=== PATIENT | female | born 1975 | race Caucasian/White ===

== ENCOUNTER 2018-04-28 22:45 | Inpatient (IN) | payer MEDICAID ==
[2018-04-28] MEDS ORDERED: Morphine Sulfate 2 mg/mL 1mL Syr ONE (23:39)
[2018-04-28] MEDS ORDERED: Morphine Sulfate 2 mg/mL 1mL Syr IVP STA (23:40)
[2018-04-28 23:42] LABS: % BASOPHILS 0.3 % (0.0-2.0); % EOSINOPHILS 1.6 % (0.0-5.0); % LYMPHOCYTES 24.7 % (20.0-50.0); % NEUTROPHILS 65.4 % (40.0-80.0); EOSINOPHILE ABSOLUTE 0.1 Th/cmm (0.1-0.4); HEMATOCRIT 34.7 % (41.0-60); HEMOGLOBIN 11.5 gm/dL (12-16); LYMPHOCYTE ABSOLUTE 2.1 Th/cmm (1.5-3.0); MEAN CELL VOLUME 81.4 fl (81-100); MEAN CORPUSCULAR HEMOGLOBIN 26.9 pg (27.0-31.0); MEAN CORPUSCULAR HGB CONC 33.1 pg (28.0-36.0); MEAN PLATELET VOLUME 8.1 fl; MONOCYTE ABSOLUTE 0.7 Th/cmm (0.3-1.0); NEUTROPHILE ABSOLUTE 5.7 Th/cmm (1.8-8.0); PLATELET COUNT 331 Th/cmm (150-400); RED BLOOD COUNT 4.27 Mil/cmm (3.80-5.10); RED CELL DISTRIBUTION WIDTH 16.6 % (11.5-20.0); WHITE BLOOD COUNT 8.6 Th/cmm (4.8-10.8)
[2018-04-28 23:47] LABS: URINE SOURCE RANDOM
[2018-04-28 23:49] LABS: URINE BILIRUBIN NEGATIVE (NEGATIVE); URINE BLOOD NEGATIVE (NEGATIVE); URINE GLUCOSE (UA) NEGATIVE (NEGATIVE); URINE KETONE NEGATIVE (NEGATIVE); URINE LEUKOCYTE ESTERASE NEGATIVE (NEGATIVE); URINE NITRATE NEGATIVE (NEGATIVE); URINE PH 6.5 (4.6 - 8.0); URINE PROTEIN NEGATIVE (NEGATIVE); URINE UROBILINOGEN 0.2 E.U./dL (0.2 - 1.0)
[2018-04-28 23:50] LABS: URINE CLARITY CLEAR (CLEAR); URINE COLOR YELLOW; URINE MICROSCOPIC INDICATED? NO
--- NOTE | 2018-04-28 23:51 | ED Physician Chart ---
ED Chief Complaint/HPI - Patient Information Date Seen:: 04/28/18 Time Seen:: 23:50 Chief Complaint:: Back pain and abdominal pain History of Present Illness:: 42 yo female with morbid obesity, was brought from [facility] to ER for evaluation of low back pain and LLQ abdominal pain for one day. Patient stated that the back pain was shooting pain 10/10 without radiating to legs. LLQ abdominal pain was dull pain 10/10. The back pain was not relieved by percocet 10/325mg. Patient had diarrhea for 3 days. Denied fever or bloody diarrhea. Allergies:: Allergies Allergy/AdvReac Type Severity Reaction Status Date / Time methylparaben Allergy Verified 04/28/18 22:58 oxymorphone Allergy Verified 04/28/18 22:58 tramadol Allergy Verified 04/28/18 22:58 Vitals:: Vital Signs - 8 hr 04/28/18 22:50 Temp 98.0 F HR 72 RR 18 BP 111/64 O2 Sat % 96 ED Review of Systems - Review of Systems General/Constitutional: No fever, No chills Skin: No rash Head: No headache Eyes: No pain ENT: No earache Neck: No neck pain Cardio Vascular: No chest pain Pulmonary: No SOB GI: Nausea, No vomiting, Diarrhea, Pain Musculoskeletal: Back pain Psychiatric: Prior psych history, Depression, Anxiety Neurological: No focal symptoms ED Past Medical History - Past Medical History Past Medical History: DM (diabetic neuropathy) Social History: Non Smoker, No Alcohol, No Drug Use Surgical History: Cholecystectomy, Hernia (x 3) Psychiatricy History: Depression, Bipolar, Other (Anxiety) Family Medical History - Family Member Mother History Unknown: Yes ED Physical Exam - Physical Examination General/Constitutional: Awake, Alert Head: Atraumatic Eyes: PERRL Skin: No skin lesions ENMT: Nasal exam nl Neck: No nuchal rigidity Respiratory: No Wheeze/Rhonchi/Rales Cardio Vascular: RRR, No murmur, gallop, rubs, NL S1 S2 Other GI comments:: LLQ tenderness Other Extremities comments:: Lumbar spine tenderness with painful and limited ROM Neuro/Psych: No focal deficits ED Labs/Radiology/EKG Results - Lab Results Results: Laboratory Tests 04/28/18 04/28/18 23:30 23:35 WBC 8.6 RBC 4.27 Hgb 11.5 L Hct 34.7 L MCV 81.4 MCH 26.9 L MCHC Differential 33.1 RDW 16.6 Plt Count 331 MPV 8.1 Neutrophils % 65.4 Lymphocytes % 24.7 Monocytes % 8.0 Eosinophils % 1.6 Basophils % 0.3 Urine Source RANDOM Urine Color YELLOW Urine Clarity CLEAR Urine pH 6.5 Ur Specific [place] 1.015 Urine Protein NEGATIVE Urine Glucose (UA) NEGATIVE Urine Ketones NEGATIVE Urine Blood NEGATIVE Urine Nitrate NEGATIVE Urine Bilirubin NEGATIVE Urine Urobilinogen 0.2 Ur Leukocyte Esterase NEGATIVE Laboratory Last Values WBC 8.8 Th/cmm (4.8-10.8) 04/29/18 06:04 RBC 4.28 Mil/cmm (3.80-5.10) 04/29/18 06:04 Hgb 11.6 gm/dL (12-16) L 04/29/18 06:04 Hct 34.8 % (41.0-60) L 04/29/18 06:04 MCV 81.3 fl (81-100) 04/29/18 06:04 MCH 27.0 pg (27.0-31.0) 04/29/18 06:04 MCHC Differential 33.2 pg (28.0-36.0) 04/29/18 06:04 RDW 16.9 % (11.5-20.0) 04/29/18 06:04 Plt Count 338 Th/cmm (150-400) 04/29/18 06:04 MPV 8.0 fl 04/29/18 06:04 Neutrophils % 63.8 % (40.0-80.0) 04/29/18 06:04 Lymphocytes % 25.3 % (20.0-50.0) 04/29/18 06:04 Monocytes % 9.1 % (2.0-10.0) 04/29/18 06:04 Eosinophils % 1.5 % (0.0-5.0) 04/29/18 06:04 Basophils % 0.3 % (0.0-2.0) 04/29/18 06:04 Sodium 139 mEq/L (136-145) 04/29/18 06:04 Potassium 4.4 mEq/L (3.5-5.1) 04/29/18 06:04 Chloride 102 mEq/L (98-107) 04/29/18 06:04 Carbon Dioxide 30.3 mEq/L (21.0-31.0) 04/29/18 06:04 Anion Gap 11.1 (7.0-16.0) 04/29/18 06:04 BUN 11 mg/dL (7-25) 04/29/18 06:04 Creatinine 0.6 mg/dL (0.6-1.2) 04/29/18 06:04 Est GFR ( Amer) > 60.0 ml/min (>90) 04/29/18 06:04 Est GFR (Non-Af Amer) > 60.0 ml/min 04/29/18 06:04 BUN/Creatinine Ratio 18.3 04/29/18 06:04 Glucose 164 mg/dL (70-105) H 04/29/18 06:04 Calcium 8.9 mg/dL (8.6-10.3) 04/29/18 06:04 Total Bilirubin 0.2 mg/dL (0.3-1.0) L 04/28/18 23:30 AST 25 U/L (13-39) 04/28/18 23:30 ALT 26 U/L (7-52) 04/28/18 23:30 Alkaline Phosphatase 110 U/L (34-104) H 04/28/18 23:30 Total Protein 6.2 gm/dL (6.0-8.3) 04/28/18 23:30 Albumin 3.3 gm/dL (3.7-5.3) L 04/28/18 23:30 Globulin 2.9 gm/dL 04/28/18 23:30 Albumin/Globulin Ratio 1.1 (1.0-1.8) 04/28/18 23:30 Triglycerides 91 mg/dL (<150) 04/29/18 06:04 Cholesterol 106 mg/dL (<200) 04/29/18 06:04 LDL Cholesterol Direct 52 mg/dL (75-193) L 04/29/18 06:04 HDL Cholesterol 46 mg/dL (23-92) 04/29/18 06:04 Amylase 28 U/L (29-103) L 04/29/18 00:00 Lipase 11 U/L (11-82) 04/29/18 00:00 Urine Source RANDOM 04/28/18 23:35 Urine Color YELLOW 04/28/18 23:35 Urine Clarity CLEAR (CLEAR) 04/28/18 23:35 Urine pH 6.5 (4.6 - 8.0) 04/28/18 23:35 Ur Specific [place] 1.015 (1.005-1.030) 04/28/18 23:35 Urine Protein NEGATIVE mg/dL (NEGATIVE) 04/28/18 23:35 Urine Glucose (UA) NEGATIVE mg/dL (NEGATIVE) 04/28/18 23:35 Urine Ketones NEGATIVE mg/dL (NEGATIVE) 04/28/18 23:35 Urine Blood NEGATIVE (NEGATIVE) 04/28/18 23:35 Urine Nitrate NEGATIVE (NEGATIVE) 04/28/18 23:35 Urine Bilirubin NEGATIVE (NEGATIVE) 04/28/18 23:35 Urine Urobilinogen 0.2 E.U./dL (0.2 - 1.0) 04/28/18 23:35 Ur Leukocyte Esterase NEGATIVE (NEGATIVE) 04/28/18 23:35 - Radiology Results Results: CT abdomen/pelvis without contrast: surgical changes noted along the anterior abdominal wall. Small and large bowel noted in close proximity to the anterior abdominal wall. A degree of bowel herniation cannot be definitely excluded. A CT scan following oral/bowel contrast would provide additional detail and assessment. Lumbar spine X ray: diffuse degenerative changes ED Assessment - Assessment General Assessment: Abdominal pain Bowel herniation cannot be definitely excluded Low back pain Normocytic anemia Assessment/Comments:: CBC, CMP, amylase, lipase, UA CT abdomen/pelvis without contrast Morphin 2mg IV x 1 Admit to med surg for further evaluation and management ED Septic Shock - . Is Septic Shock (SBP<90, OR Lactate>4 mmol\L) present?: No - <6hrs of presentation: Vital Signs: Vital Signs - 8 hr 04/28/18 22:50 Temp 98.0 F HR 72 RR 18 BP 111/64 O2 Sat % 96 ED Reassessment (Disposition) - Reassessment Reassessment Condition:: Improved - Patient Disposition Discharge/Transfer:: Acute Care w/in this hosp Admitting Medical Physician:: Annelise Barrett
[2018-04-29] LABS: ALB/GLOB RATIO 1.1 (1.0-1.8); ALBUMIN 3.3 gm/dL (3.7-5.3); ALKALINE PHOSPHATASE 110 U/L (34-104); ANION GAP 13.7 (7.0-16.0); BILIRUBIN,TOTAL 0.2 mg/dL (0.3-1.0); BUN - UREA NITROGEN 11 mg/dL (7-25); CALCIUM SERUM 8.9 mg/dL (8.6-10.3); CARBON DIOXIDE 25.7 mEq/L (21.0-31.0); CHLORIDE 101 mEq/L (98-107); CREATININE - SERUM 0.6 mg/dL (0.6-1.2); GFR AFRICAN-AMERICAN > 60.0 ml/min (>90); GFR NON AFRICAN-AMERICAN > 60.0 ml/min; GLUCOSE 197 mg/dL (70-105); POTASSIUM SERUM 4.4 mEq/L (3.5-5.1); SGOT 25 U/L (13-39); SGPT/ALT 26 U/L (7-52); SODIUM SERUM 136 mEq/L (136-145); TOTAL PROTEIN,SERUM 6.2 gm/dL (6.0-8.3)
[2018-04-29 00:36] LABS: AMYLASE SERUM 28 U/L (29-103); LIPASE 11 U/L (11-82)
[2018-04-29 02:21] VITALS: BP 142/75
[2018-04-29] MEDS: Morphine Sulfate 2 mg/mL 1mL Syr IVP PRN ×10 (03:08→21:48)
[2018-04-29 06:36] LABS: % BASOPHILS 0.3 % (0.0-2.0); % EOSINOPHILS 1.5 % (0.0-5.0); % LYMPHOCYTES 25.3 % (20.0-50.0); % MONOCYTES 9.1 % (2.0-10.0); % NEUTROPHILS 63.8 % (40.0-80.0); EOSINOPHILE ABSOLUTE 0.1 Th/cmm (0.1-0.4); HEMATOCRIT 34.8 % (41.0-60); HEMOGLOBIN 11.6 gm/dL (12-16); LYMPHOCYTE ABSOLUTE 2.2 Th/cmm (1.5-3.0); MEAN CELL VOLUME 81.3 fl (81-100); MEAN CORPUSCULAR HGB CONC 33.2 pg (28.0-36.0); MONOCYTE ABSOLUTE 0.8 Th/cmm (0.3-1.0); NEUTROPHILE ABSOLUTE 5.7 Th/cmm (1.8-8.0); PLATELET COUNT 338 Th/cmm (150-400); RED BLOOD COUNT 4.28 Mil/cmm (3.80-5.10); RED CELL DISTRIBUTION WIDTH 16.9 % (11.5-20.0); WHITE BLOOD COUNT 8.8 Th/cmm (4.8-10.8)
[2018-04-29 06:43] LABS: ANION GAP 11.1 (7.0-16.0); BUN - UREA NITROGEN 11 mg/dL (7-25); CALCIUM SERUM 8.9 mg/dL (8.6-10.3); CARBON DIOXIDE 30.3 mEq/L (21.0-31.0); CHLORIDE 102 mEq/L (98-107); CHOLESTEROL 106 mg/dL (<200); CREATININE - SERUM 0.6 mg/dL (0.6-1.2); GFR AFRICAN-AMERICAN > 60.0 ml/min (>90); GFR NON AFRICAN-AMERICAN > 60.0 ml/min; GLUCOSE 164 mg/dL (70-105); HDL -HIGH DENSITY LIPOPROTEIN 46 mg/dL (23-92); POTASSIUM SERUM 4.4 mEq/L (3.5-5.1); SODIUM SERUM 139 mEq/L (136-145); TRIGLYCERIDES 91 mg/dL (<150)
--- NOTE | 2018-04-29 07:57 | Diagnostic Imaging Report ---
CT scan abdomen and pelvis without intravenous contrast HISTORY: Pain Total DLP equals 826 CTDI equals 18.9 Axial sections were obtained from the xiphoid process down to the pubic symphysis. There is enlargement of the left lobe of the liver. There appears to be a decrease in overall hepatic parenchymal density. The findings may be associated with fatty infiltration and should be correlated with liver function tests. No discrete focal lesions are seen. Surgical clips are seen within the corin hepatis region consistent with a prior cholecystectomy. No abnormalities seen in the region of the pancreas. The spleen appears normal. There is an approximate 1.5 cm hypodense lesion involving the right adrenal gland. Density measurements are consistent with fatty composition and a benign etiology. No focal renal lesions. No hydronephrosis. Surgical changes noted along the anterior abdominal wall. Small and large bowel noted in close proximity to the anterior abdominal wall. A degree of bowel herniation cannot be definitely excluded. An exam following administration of oral/bowel contrast would provide additional detail. Additional surgical changes noted in the right lower abdomen. No abnormal masses or fluid collections seen within the pelvis. Degenerative changes noted through the spine. IMPRESSION: 1. Surgical changes along the anterior abdominal wall associated with nondilated bowel. Herniation cannot be excluded. A CT scan following administration of oral/bowel contrast would provide additional detail and assessment. 2. 1.5 cm benign-appearing right adrenal lesion 3. Status post cholecystectomy 4. Enlargement of the left lobe of the liver lung parenchymal changes suggesting fatty infiltration. The finding should be correlated with liver function tests.
--- NOTE | 2018-04-29 08:31 | Diagnostic Imaging Report ---
Lumbar spine (3 views) HISTORY: Pain Degenerative changes with spur formation noted about the endplates of all vertebrae. Narrowing of the L2-3 and L3-4 disc spaces. Slight retrolisthesis of L3 relative to L4. Air is seen within the L3-4 interspace reflecting degenerative disc disease. Hypertrophic changes noted about the facet joints at L4-5 and L5-S1. Additional degenerative changes noted in the lower thoracic spine. IMPRESSION: 1. Diffuse degenerative changes
[2018-04-29] MEDS ORDERED: Magnesium Hydroxide (MOM) 30 mL UDC PO PRN (13:46)
[2018-04-29] MEDS ORDERED: APAP/Oxycodone 5/325mg Tab PO PRN (13:46)
[2018-04-29] MEDS ORDERED: INSULIN LISPRO 25 UNIT SUBQ SCH (14:00)
[2018-04-29] MEDS: INSULIN ASPART SLIDING SCALE 100 UNITS/ML UNIT SUBQ SCH ×2 (15:57→21:25)
--- NOTE | 2018-04-29 16:12 | History & Physical ---
ADMIT DATE: 04/29/2018 DICTATING FOR: Dr. Barrett. CHIEF COMPLAINT: Lower back pain and abdominal pain. HISTORY OF PRESENT ILLNESS: This is a 42-year-old obese female who is a resident of [facility], admitted here to the med/surg unit due to complaints of low back pain and left lower quadrant abdominal pain. The patient denied any nausea, vomiting or any diarrhea at the custodial. For further management, the patient is admitted to the med/surg unit. The patient did mention that she has been having diarrhea for about 3 days as well. PAST MEDICAL HISTORY: Diabetes, diabetic neuropathy and chronic back pain. SOCIAL HISTORY: The patient is a custodial resident requiring 24-hour nursing care. PAST SURGICAL HISTORY: Hernia repair and cholecystectomy. PSYCHIATRIC HISTORY: Bipolar, anxiety, depression. REVIEW OF SYSTEMS: GENERAL: Denies any fevers or chills. CARDIOVASCULAR: No chest pain. RESPIRATORY: No shortness of breath. GASTROINTESTINAL: Denies nausea, vomiting, abdominal pain. GENITOURINARY: Denies increased frequency, dysuria. NEUROLOGIC: No headaches, seizures, or syncope. MUSCULOSKELETAL: The patient complains of back pain. PHYSICAL EXAMINATION: GENERAL: Obese female, awake, alert, no apparent distress. VITAL SIGNS: Temperature 97.0, heart rate 105, blood pressure 110/56, respiration 18, O2 94%. HEENT: Head; normocephalic, atraumatic. NECK: Supple. No mass. LUNGS: Clear bilaterally. HEART: Regular rhythm. ABDOMEN: Soft, nontender. LABORATORY DATA: WBC 8.8, H and H 11.6/34.8, platelets 338. Sodium 139, potassium 4.4, chloride 102, BUN 11, creatinine 0.6. DIAGNOSTICS: The patient had a CT of the abdomen and pelvis done, impression is surgical changes, enlargement of the left lobe of the liver, lung, parenchymal changes suggesting fatty infiltrate. The patient also had a lumbar spine x-ray done, impression is diffuse degenerative changes. ASSESSMENT: Acute renal calculi, low back pain, obesity, diabetes, diabetic neuropathy. PLAN: We will get a Urology consultation. We will follow up labs in a.m. We will do Accu-Chek with high dose sliding scale. Pain management. We will continue to monitor this patient. JOB# [id number]
[2018-04-29] MEDS ORDERED: INSULIN ASPART SLIDING SCALE 100 UNITS/ML UNIT SUBQ SCH (16:30)
[2018-04-29] MEDS: Insulin Detemir 100 units/mL 10mL Vial SUBQ SCH (18:37)
[2018-04-29] MEDS ORDERED: LURASIDONE HCL 60 MG PO SCH (21:00)
[2018-04-30] MEDS: Morphine Sulfate 2 mg/mL 1mL Syr IVP PRN ×3 (02:38→08:41)
[2018-04-30] MEDS: INSULIN ASPART SLIDING SCALE 100 UNITS/ML UNIT SUBQ SCH ×2 (07:42→12:15)
[2018-04-30 08:42] LABS: % BASOPHILS 2.4 % (0.0-2.0); % EOSINOPHILS 1.6 % (0.0-5.0); % LYMPHOCYTES 19.5 % (20.0-50.0); % MONOCYTES 7.6 % (2.0-10.0); % NEUTROPHILS 68.9 % (40.0-80.0); BASOPHILE ABSOLUTE 0.2 Th/cumm (0-0.2); EOSINOPHILE ABSOLUTE 0.1 Th/cmm (0.1-0.4); HEMATOCRIT 37.2 % (41.0-60); HEMOGLOBIN 12.1 gm/dL (12-16); LYMPHOCYTE ABSOLUTE 1.7 Th/cmm (1.5-3.0); MEAN CORPUSCULAR HEMOGLOBIN 26.6 pg (27.0-31.0); MEAN CORPUSCULAR HGB CONC 32.4 pg (28.0-36.0); MEAN PLATELET VOLUME 8.1 fl; MONOCYTE ABSOLUTE 0.7 Th/cmm (0.3-1.0); PLATELET COUNT 343 Th/cmm (150-400); RED BLOOD COUNT 4.53 Mil/cmm (3.80-5.10); RED CELL DISTRIBUTION WIDTH 16.6 % (11.5-20.0); WHITE BLOOD COUNT 8.7 Th/cmm (4.8-10.8)
[2018-04-30] MEDS: Insulin Detemir 100 units/mL 10mL Vial SUBQ SCH (08:48)
[2018-04-30 08:55] LABS: ANION GAP 12.3 (7.0-16.0); BUN - UREA NITROGEN 12 mg/dL (7-25); CALCIUM SERUM 8.8 mg/dL (8.6-10.3); CHLORIDE 102 mEq/L (98-107); CREATININE - SERUM 0.6 mg/dL (0.6-1.2); GFR AFRICAN-AMERICAN > 60.0 ml/min (>90); GFR NON AFRICAN-AMERICAN > 60.0 ml/min; GLUCOSE 258 mg/dL (70-105); POTASSIUM SERUM 4.3 mEq/L (3.5-5.1); SODIUM SERUM 136 mEq/L (136-145)
[2018-04-30] MEDS ORDERED: buPROPion XL 150 mg T 24 H PO SCH (09:00)
[2018-04-30] MEDS ORDERED: POLYETHYLENE GLYCOL 3350 17 GM PACK PO SCH (09:00)
[2018-04-30] MEDS ORDERED: Pantoprazole 40 mg EC Tab PO SCH (09:00)
[2018-04-30] MEDS ORDERED: Multivitamin Tab PO SCH (09:00)
--- NOTE | 2018-04-30 11:19 | General Progress Note ---
Subjective - Review of Systems Events since last encounter: patient still with c/o abd pain denies sob,cp no fever Objective - Results Result Diagrams: 04/30/18 08:30 04/30/18 08:30 Recent Labs: Laboratory Last Values WBC 8.7 Th/cmm (4.8-10.8) 04/30/18 08:30 RBC 4.53 Mil/cmm (3.80-5.10) 04/30/18 08:30 Hgb 12.1 gm/dL (12-16) 04/30/18 08:30 Hct 37.2 % (41.0-60) L 04/30/18 08:30 MCV 82.0 fl (81-100) 04/30/18 08:30 MCH 26.6 pg (27.0-31.0) L 04/30/18 08:30 MCHC Differential 32.4 pg (28.0-36.0) 04/30/18 08:30 RDW 16.6 % (11.5-20.0) 04/30/18 08:30 Plt Count 343 Th/cmm (150-400) 04/30/18 08:30 MPV 8.1 fl 04/30/18 08:30 Neutrophils % 68.9 % (40.0-80.0) 04/30/18 08:30 Lymphocytes % 19.5 % (20.0-50.0) L 04/30/18 08:30 Monocytes % 7.6 % (2.0-10.0) 04/30/18 08:30 Eosinophils % 1.6 % (0.0-5.0) 04/30/18 08:30 Basophils % 2.4 % (0.0-2.0) H 04/30/18 08:30 Sodium 136 mEq/L (136-145) 04/30/18 08:30 Potassium 4.3 mEq/L (3.5-5.1) 04/30/18 08:30 Chloride 102 mEq/L (98-107) 04/30/18 08:30 Carbon Dioxide 26.0 mEq/L (21.0-31.0) 04/30/18 08:30 Anion Gap 12.3 (7.0-16.0) 04/30/18 08:30 BUN 12 mg/dL (7-25) 04/30/18 08:30 Creatinine 0.6 mg/dL (0.6-1.2) 04/30/18 08:30 Est GFR ( Amer) > 60.0 ml/min (>90) 04/30/18 08:30 Est GFR (Non-Af Amer) > 60.0 ml/min 04/30/18 08:30 BUN/Creatinine Ratio 20.0 04/30/18 08:30 Glucose 258 mg/dL (70-105) H 04/30/18 08:30 POC Glucose 170 MG/DL (70 - 105) H 04/30/18 06:09 Hemoglobin A1c % 11.0 % (4.0-6.0) H 04/29/18 00:00 Calcium 8.8 mg/dL (8.6-10.3) 04/30/18 08:30 Total Bilirubin 0.2 mg/dL (0.3-1.0) L 04/28/18 23:30 AST 25 U/L (13-39) 04/28/18 23:30 ALT 26 U/L (7-52) 04/28/18 23:30 Alkaline Phosphatase 110 U/L (34-104) H 04/28/18 23:30 Total Protein 6.2 gm/dL (6.0-8.3) 04/28/18 23:30 Albumin 3.3 gm/dL (3.7-5.3) L 04/28/18 23:30 Globulin 2.9 gm/dL 04/28/18 23:30 Albumin/Globulin Ratio 1.1 (1.0-1.8) 04/28/18 23:30 Triglycerides 91 mg/dL (<150) 04/29/18 06:04 Cholesterol 106 mg/dL (<200) 04/29/18 06:04 LDL Cholesterol Direct 52 mg/dL (75-193) L 04/29/18 06:04 HDL Cholesterol 46 mg/dL (23-92) 04/29/18 06:04 Amylase 28 U/L (29-103) L 04/29/18 00:00 Lipase 11 U/L (11-82) 04/29/18 00:00 Urine Source RANDOM 04/28/18 23:35 Urine Color YELLOW 04/28/18 23:35 Urine Clarity CLEAR (CLEAR) 08/28/18 23:35 Urine pH 6.5 (4.6 - 8.0) 04/28/18 23:35 Ur Specific [place] 1.015 (1.005-1.030) 04/28/18 23:35 Urine Protein NEGATIVE mg/dL (NEGATIVE) 04/28/18 23:35 Urine Glucose (UA) NEGATIVE mg/dL (NEGATIVE) 04/28/18 23:35 Urine Ketones NEGATIVE mg/dL (NEGATIVE) 04/28/18 23:35 Urine Blood NEGATIVE (NEGATIVE) 04/28/18 23:35 Urine Nitrate NEGATIVE (NEGATIVE) 04/28/18 23:35 Urine Bilirubin NEGATIVE (NEGATIVE) 04/28/18 23:35 Urine Urobilinogen 0.2 E.U./dL (0.2 - 1.0) 04/28/18 23:35 Ur Leukocyte Esterase NEGATIVE (NEGATIVE) 04/28/18 23:35 - Physical Exam Vitals and I&O: Vital Signs Temp 96.4 F 04/30/18 05:00 Pulse 110 04/30/18 05:00 Resp 18 04/30/18 05:00 BP 156/96 04/30/18 05:00 Pulse Ox 95 04/30/18 01:31 Intake & Output 04/29/18 04/30/18 04/30/18 18:59 06:59 18:59 Intake Total 650 240 Output Total 1 Balance 650 239 Weight (lbs) 141.521 kg 144.242 kg Intake: Oral 650 240 Output: Urine 1 Other: # Voids 3 # Bowel Movements 1 Weight Source Bedscale Bedscale Active Medications: Current Medications Acetaminophen (Tylenol) 650 mg PO Q4HR PRN PRN Reason: Pain or Fever >101 Stop: 06/28/18 13:45 Alprazolam (Xanax) 0.5 mg PO DAILY PRN; Protocol PRN Reason: Anxiety Stop: 06/28/18 13:45 Ascorbic Acid (Vitamin C) 1,000 mg PO DAILY YEISON Stop: 06/29/18 08:59 Last Admin: 04/30/18 08:46 Dose: 1,000 mg Atorvastatin Calcium (Lipitor) 40 mg PO HS YEISON Stop: 06/28/18 20:59 Last Admin: 04/29/18 21:24 Dose: 40 mg Bupropion HCl (Wellbutrin Xl) 300 mg PO DAILY YEISON Stop: 06/29/18 08:59 Last Admin: 04/30/18 08:47 Dose: 300 mg Carisoprodol (Soma) 350 mg PO TID [facility] Stop: 06/28/18 13:59 Last Admin: 04/30/18 08:46 Dose: 350 mg Docusate Sodium (Colace) 100 mg PO BID [facility] Stop: 06/28/18 16:59 Last Admin: 04/30/18 08:46 Dose: 100 mg Duloxetine HCl (Cymbalta) 60 mg PO DAILY [facility] Stop: 06/29/18 08:59 Gabapentin (Neurontin) 400 mg PO TID [facility] Stop: 06/28/18 13:59 Last Admin: 04/30/18 08:46 Dose: 400 mg Glipizide (Glucotrol) 10 mg PO BIDAC [facility] Stop: 06/28/18 16:29 Last Admin: 04/30/18 07:42 Dose: 10 mg Insulin Aspart (Novolog Insulin Sliding Scale) 0 units SUBQ ACHS [facility]; Protocol Stop: 06/28/18 16:29 Last Admin: 04/30/18 07:42 Dose: 3 units Insulin Detemir (Levemir Insulin) 62 units SUBQ BID [facility] Stop: 06/28/18 16:59 Last Admin: 04/30/18 08:48 Dose: 62 unit Magnesium Hydroxide (Milk Of Magnesia) 30 ml PO DAILY PRN PRN Reason: Constipation Stop: 06/28/18 13:45 Metformin HCl (Glucophage) 1,000 mg PO BIDAC [facility] Stop: 06/28/18 16:29 Last Admin: 04/30/18 07:42 Dose: 1,000 mg Miscellaneous (Lurasidone Hcl [Latuda]) 60 mg PO HS [facility] Stop: 06/28/18 20:59 Last Admin: 04/29/18 21:25 Dose: Not Given Morphine Sulfate (Morphine) 1 mg IVP Q4H PRN PRN Reason: Pain (Mild) 1-3 Stop: 06/28/18 01:44 Last Admin: 04/30/18 05:32 Dose: 1 mg Morphine Sulfate (Morphine) 2 mg IVP Q4HR PRN PRN Reason: Pain (Severe) 7-10 Stop: 06/28/18 01:30 Last Admin: 04/30/18 08:41 Dose: 2 mg Multivitamins/Vitamin C (Theragran) 1 tab PO DAILY YEISON Stop: 06/29/18 08:59 Last Admin: 04/30/18 08:46 Dose: 1 tab Ondansetron HCl (Zofran) 4 mg IV Q6H PRN PRN Reason: Nausea / Vomiting Stop: 06/28/18 01:44 Last Admin: 04/29/18 15:06 Dose: 4 mg Ondansetron HCl (Zofran Odt) 4 mg PO Q6HR PRN PRN Reason: Nausea / Vomiting Stop: 06/28/18 13:45 Oxycodone/Acetaminophen (Percocet 5/325mg Oral Tab) 1 tab PO Q4HR PRN PRN Reason: Pain (Severe) Pantoprazole Sodium (Protonix) 40 mg PO DAILY YEISON Stop: 06/29/18 08:59 Last Admin: 04/30/18 08:46 Dose: 40 mg Polyethylene Glycol (Miralax) 17 gm PO DAILY YEISON Stop: 06/29/18 08:59 Last Admin: 04/30/18 08:46 Dose: 17 gm Zinc Sulfate (Zinc Sulfate) 220 mg PO DAILY YEISON Stop: 06/29/18 08:59 Last Admin: 04/30/18 08:46 Dose: 220 mg Zolpidem Tartrate (Ambien) 5 mg PO HS PRN PRN Reason: Insomnia Stop: 06/28/18 13:45 General: No acute distress HEENT: Atraumatic, PERRLA Neck: Supple, JVD, Thyromegaly Cardiovascular: Regular rate, Normal S1, Normal S2 Lungs: Clear to auscultation Assessment/Plan - Plan Plan: as per order sheet Nutritional Asmnt/Malnutr-PDOC - Dietary Evaluation Malnutrition Findings (Please click <Entered> for more info): Nutritional Asmnt/Malnutrition Start: 04/29/18 17: 06 Text: Status: Complete Freq: Protocol: Document 04/29/18 17:07 ANASTASIAG (Rec: 04/29/18 17:20 VENANCIO [email or web address]) Nutritional Asmnt/Malnutrition Patient General Information Nutritional Screening High Risk Diagnosis renal calculus, back pain Pertinent Medical Hx/Surgical Hx DM, diabetic neuropathy, cholecystectomy, hernia, depression, bipolar, anxiety Subjective Information pt from SNF seen lying in bed, awake and alert. Pt reported slight abd pain and nausea today, but much better than yesterday. pt has good appetite. glucose 197 at admission noted. Current Diet Order/ Nutrition Support low sodium Pertinent Medications vit C, colace, glucotrol, novolog, levemir, glucophage, theragran, protonix, miralax, zinc Pertinent Labs 04/29 glucose 164 04/28 glucose 197, alb 3.3 Nutritional Hx/Data Height 1.52 m Height (Calculated Centimeters) 152.4 Current Weight (lbs) 141.521 kg Weight (Calculated Kilograms) 141.5 Weight (Calculated Grams) 621443.8 [place] Body Weight 100 Body Mass Index (BMI) 60.9 Weight Status Morbidly Obese GI Symptoms GI Symptoms Nausea Last BM not indicated Difficult in: None Skin Integrity/Comment: intact Current %PO Good (75-100%) Estimated Nutritional Goals BEE in Kcals: Adj wt of IBW Calories/Kcals/Kg 25-30 Kcals Calculated 1933-4735 Protein: Adj wt of IBW Protein g/k-1.2 Protein Calculated 70-85 Fluid: ml 1750-2100ml (1ml/kcal) Nutritional Problem 1. Problem Problem altered nutrition related labs Etiology hx of DM Signs/Symptoms: glucose 164-197 Malnutrition Alert Is there a minimum of two criteria No selected? Query Text:Check all the applicable criteria. A minimum of two criteria are recommended for diagnosis of either severe or non-severe malnutrition. Malnutrition Related to Morbid Obesity Malnutrition related to morbid obesity No Intervention/Recommendation Comments 1. Recommend adding CCHO-75gm diet d/t elevated glucose and hx of DM. PAULINE Cleaning notified. Will provide diabetic education after diet changed. 2. Monitor PO intake, wt, labs and skin integrity 3. F/U as high risk in 2-3 days, 05/01-05/02 Expected Outcomes/Goals Expected Outcomes/Goals 1. PO intake to meet at least 75% of nutritional needs. 2. Wt stability, skin to remain intact, labs to approach WNL.
--- NOTE | 2018-05-01 21:18 | Discharge Summary ---
DATE OF DISCHARGE: 04/30/2018 HOSPITAL COURSE: The patient was admitted to [facility] on 04/29 and the patient was discharged on 04/30. The patient apparently complaining of severe low back pain, obesity, history of hypertension, diabetic neuropathy. The patient was admitted and complete workup done including Urology consult. renal calculi and the patient's back pain improved. Diagnoses is back pain, possibly musculoskeletal; history of hypertension; diabetes; obesity; and diabetic neuropathy. The patient was sent back to [place] for her combined medication management as well as pain management. JOB# [id number]
== END 2018-04-30 16:05 | DRG 465 ==
LOC: ER 22:45 → ICU 04-29 01:30 → MSI 04-29 06:45
PROVIDERS: ADMIT Internal Medicine; ATTEND Internal Medicine
DX: N20.0 Calculus of kidney (principal); E11.00 Type 2 diabetes mellitus with hyperosmolarity without nonketotic hyperglycemic-hyperosmolar coma (NKHHC); E11.40 Type 2 diabetes mellitus with diabetic neuropathy, unspecified; Z66 Do not resuscitate; E66.01 Morbid (severe) obesity due to excess calories; Z68.44 Body mass index [BMI] 60.0-69.9, adult; F31.9 Bipolar disorder, unspecified; M54.5 Low back pain; D64.9 Anemia, unspecified; K46.9 Unspecified abdominal hernia without obstruction or gangrene; Z88.8 Allergy status to other drugs, medicaments and biological substances; Z90.49 Acquired absence of other specified parts of digestive tract
CPT/HCPCS: 36415-UA; 72110-TC; 80048-TC; 80053-TC; 80061-TC; 81003-TC; 82150-TC; 82948-90; 83036-90; 83690-TC; 85025-TC; 96374; J1815; J2270; J2405; Z7610